=== PATIENT | male | born 1975 | race Caucasian/White ===

== ENCOUNTER 2021-03-22 21:04 | Emergency (ER) | payer MEDICAID ==
[~2021-03-22] VITALS: Ht 180.3 cm; Wt 75.0 kg
[2021-03-22 21:20] VITALS: BP 154/104
--- NOTE | 2021-03-22 22:47 | NUR ---
Pt told registration he was leaving.
== END 2021-03-22 22:49 | disposition left against medical advice (07) ==
LOC: ED 21:10
DX: R51.9 Headache, unspecified (principal); Z53.21 Procedure and treatment not carried out due to patient leaving prior to being seen by health care provider